=== PATIENT | male | born 1955 | race Hispanic/Latino ===

== ENCOUNTER 2020-11-11 13:55 | Emergency (ER) | payer SELFPAY ==
[2020-11-11] VITALS (7 sets, daily range): BP systolic 118–154; BP diastolic 77–95; PULSE 51–61; RESP 16–18; TEMP 35.5; O2SAT 95–99; BMI 28.1
--- NOTE | 2020-11-11 14:21 | ED.VIS.GEN ---
History of Present Illness Chief Complaint: Neuro S/Sx Informant: Patient Narrative: 65-year-old male with history of coronary artery bypass distantly currently only takes aspirin presenting with left-sided facial droop. He states last evening he did not have this. When he woke up at 5 in the morning was brushing his teeth he noticed it. Patient states that he has been at work today and feels otherwise fine other than his face being numb and having difficulty moving. Patient denies any injury. He does not have any arm or leg weakness or paresthesias in his extremities. Past Medical History - Allergies and Home Meds Allergies/Adverse Reactions: Allergies No Known Allergies Allergy (Verified 11/11/20 13:56) Primary Care Physician: NOT,DEFINED [NON-STAFF] - Past Medical History: - - CABG Surgical History: noncontributory Lives: Alone Smoking Status: Unknown if ever smoked Alcohol: None Drugs: None Review of Systems General: Denies: Chills, Fever, Sweats Eyes: Denies: Visual changes - bilaterally, Diplopia ENT: Denies: Rhinorrhea, Sore throat Cardiovascular: Denies: Chest pain, Palpitations Respiratory: Denies: Dyspnea, Cough, Dyspnea on exertion Gastrointestinal: Denies: Abdominal pain, Nausea, Vomiting, Diarrhea, Melena, Hematochezia Genitourinary: Denies: Dysuria, Hematuria, Frequency Musculoskeletal: Denies: Back pain, Extremity Pain Skin: Denies: Rash, Wounds Neurological: Reports: Weakness - Facial droop left side of face, Numbness - Left side of face. Denies: Headache Psych: Denies: Depression, Anxiety Endocrine: Denies: Polyuria, Polydipsia Physical Exam Vital Signs/Narrative: Vital Signs Temp Pulse Resp BP Pulse Ox 11/11/20 13:56 95.9 F L 61 18 154/83 H 97 Inital Vital Signs reviewed: Yes General: Well nourished, No Acute Distress Head: Normocephalic, Atraumatic Eyes: Perrl, EOMI ENT: Moist mucous membranes, No rhinorrhea Cardiovascular: Regular rate, Regular rhythm Respiratory: No distress, CTA bilaterally Skin: Normal color, No rash. Negative for: Cyanosis, Diaphoresis Neurological: Alert, Oriented x3, Parasthesia - Left-sided forehead is spared, Left side facial droop, - - NIH is 2 Psychological: Normal affect, Normal Mood Diagnostic/Tx/Re-eval Clinical Impression(s) from Imaging Studies Brain CT 11/11/20 14:49 IMPRESSION: 1. No CT evident acute infarct or acute intracranial disease. 2. ASPECT Score 10. 3. If deemed clinically warranted, further imaging evaluation with MRI may be more informative. Individualized dose optimization techniques were used for this CT. at 1632 Reported and signed by: Keanu Ortiz MD N.B. : The above information has been verbally conveyed by Keanu Ortiz MD to Lamonte Joshi DO, DO on 11/11/2020 16:31:33 (ET). Electronically Signed: Keanu Ortiz MD at 16:31 EST Tel , Service support , ADDENDUM: 11/11/20 1640 IMPRESSION: 1. No CT evident acute infarct or acute intracranial disease. 2. ASPECT Score 10. 3. If deemed clinically warranted, further imaging evaluation with MRI may be more informative. Individualized dose optimization techniques were used for this CT. at 1632 Reported and signed by: Keanu Ortiz MD N.B. : The above information has been verbally conveyed by Keanu Ortiz MD to Lamonte Joshi DO, DO on 11/11/2020 16:31:33 (ET). Electronically Signed: Keanu Ortiz MD at 16:31 EST Tel , Service support , Chest X-Ray 11/11/20 16:14 IMPRESSION: 1. No acute cardiopulmonary disease. at 1652 Reported and signed by: Keanu Ortiz MD Electronically Signed: Keanu Ortiz MD at 16:50 EST Tel , Service support , Laboratory Data 11/11/20 11/11/20 11/11/20 14:27 15:00 15:00 WBC 6.8 RBC 5.95 Hgb 17.1 H Hct 51.7 MCV 86.9 MCH 28.7 MCHC 33.1 RDW Std Deviation 42.0 RDW Coeff of Susanne 13.1 Plt Count 294 MPV 8.9 Immature Gran % (Auto) 0.100 Neut % (Auto) 61.8 Lymph % (Auto) 27.0 Wilkinson % (Auto) 9.3 Eos % (Auto) 1.2 Baso % (Auto) 0.6 Absolute Neuts (auto) 4.2 Absolute Lymphs (auto) 1.83 Nucleated RBC % 0 PT 13.0 INR 1.0 APTT 30.7 Sodium Potassium Chloride Carbon Dioxide Anion Gap BUN Creatinine Estim Creat Clear Calc Est GFR (MDRD) Af Amer Est GFR (MDRD) Non-Af BUN/Creatinine Ratio Glucose Calcium Troponin I POC Glucose 116 H 11/11/20 15:00 WBC RBC Hgb Hct MCV MCH MCHC RDW Std Deviation RDW Coeff of Susanne Plt Count MPV Immature Gran % (Auto) Neut % (Auto) Lymph % (Auto) Wilkinson % (Auto) Eos % (Auto) Baso % (Auto) Absolute Neuts (auto) Absolute Lymphs (auto) Nucleated RBC % PT INR APTT Sodium 139 Potassium 4.3 Chloride 106 Carbon Dioxide 30.0 Anion Gap 3 L BUN 16 Creatinine 0.90 Estim Creat Clear Calc 78.54 Est GFR (MDRD) Af Amer 109 Est GFR (MDRD) Non-Af 91 BUN/Creatinine Ratio 17.8 Glucose 100 Calcium 9.3 Troponin I < 0.015 POC Glucose - Rhythm Strip Rhythm Strip: Sinus Rhythm Rate: 83 - EKG Initial EKG Interpretation: No Acute Injury Pattern, Sinus Bradycardia - Medical Decision Making Patient presents with left-sided facial droop with sparing of the forehead. He has no other neurologic findings. Patient had CT of the brain which was negative for acute findings. Chest x-ray is interpreted by myself and the radiologist as negative for acute process. Patient's EKG is sinus rhythm without signs of ischemia as interpreted by myself. Patient's lab work is unremarkable. Patient counseled he will need to be admitted for further imaging and neurology consult, however at this time he states that he immediately has to leave in order to get back to [place] and help his family. I did camp counselor him at length the risks of doing so. He acknowledges understanding. He signed the appropriate paperwork. Patient counseled that he may return at any time. Impression: 1. Stroke ED Disposition - Plan for ED Patient: Disposition: Home or Assisted Living Instructions: Symptoms of Stroke Referrals: NOT,DEFINED [NON-STAFF] -
[2020-11-11 14:30] LABS: Bedside Glucose 116 mg/dL (70-110)
--- NOTE | 2020-11-11 14:49 | CT_ITS ---
HISTORY: Left facial droop today, hypertension. COMPARISON: None. TECHNIQUE: Helical CT axial images are obtained from the base of skull through the vertex without IV contrast. Multiplanar reconstruction. A radiation dose optimization technique was used for this scan. # of images incl. paperwork: 253 FINDINGS: BRAIN: No parenchymal hemorrhage, infarct, intra-axial mass, mass effect, or midline shift. No abnormal extra-axial fluid collections. VENTRICLES: Ventricles are normal in size and configuration. No hydrocephalus. CALVARIUM: Bone windows show no skull fracture or calvarial lesions. PARANASAL SINUSES AND MASTOIDS: Old left lamina papyracea fracture. Visualized paranasal sinuses are clear. Mastoid air cells are clear. ASPECTS Score for Acute Strokes: 10 CT/STROKE Brain/Head without Cont IMPRESSION: 1. No CT evident acute infarct or acute intracranial disease. 2. ASPECT Score 10. 3. If deemed clinically warranted, further imaging evaluation with MRI may be more informative. Individualized dose optimization techniques were used for this CT. at 1632 Reported and signed by: Keanu Ortiz MD N.B. : The above information has been verbally conveyed by Keanu Ortiz MD to Lamonte Joshi DO, , on 11/11/2020 16:31:33 (ET). Electronically Signed: Keanu Ortiz MD at 16:31 EST Tel , Service support ,
--- NOTE | 2020-11-11 15:21 | EKG12_ITS ---
Test Reason : Blood Pressure : / mmHG Vent. Rate : 053 BPM Atrial Rate : 053 BPM P-R Int : 178 ms QRS Dur : 090 ms QT Int : 434 ms P-R-T Axes : 025 -11 038 degrees QTc Int : 407 ms Sinus bradycardia Minimal voltage criteria for LVH, may be normal variant Borderline ECG Confirmed by MAGDY SLOAN, YECENIA ([id number]), metropolitan editor FLACO LUND ([id number]) on 11/15/2020 10:50:13 AM Referred By: KATINA Confirmed By:DAVID CURRAN MD
[2020-11-11 15:44] LABS: Partial Thromboplast Time 30.7 Seconds (24.1-36.2)
[2020-11-11 15:46] LABS: Absolute Lymphocyte Count 1.83 X10^3/uL (0.83-4.51); Absolute Neutrophil Count 4.2 X10^3/uL (2.0-7.7); Basophil# 0.04 X10^3/uL; Basophil% 0.6 % (0-1); Eosinophil# 0.08 X10^3/uL; Eosinophils% 1.2 % (0-5); Hematocrit 51.7 % (40-54); Hemoglobin 17.1 g/dL (13.0-16.5); Lymphocyte # 1.83 X10^3/ul (4.0); Mean Corp Hgb Conc 33.1 g/dL (32-36); Mean Corpuscular Hgb 28.7 pg (27.0-32.0); Mean Corpuscular Volume 86.9 fL (80-94); Mean Platelet Vol. 8.9 fl (6.2-12.0); Monocyte# 0.63 X10^3/uL; Monocyte% 9.3 % (0-10); NRBC Flagged by Analyzer 0 % (0-5); Neutrophil % 61.8 % (47-70); Platelet Count 294 K/mm3 (150-450); RBC Distribution Width CV 13.1 % (11.6-14.6); Red Blood Count 5.95 M/mm3 (4.6-6.2); White Blood Count 6.8 K/mm3 (4.4-11.0)
[2020-11-11 15:48] LABS: Anion Gap 3 (5-15); BUN 16 mg/dL (7-18); BUN/Creat Ratio 17.8 RATIO (10-20); Calcium,Total 9.3 mg/dL (8.5-10.1); Chloride 106 mmol/L (98-107); EST Glomerular Filtration Rate 91 mL/min (>60); Est Glom Filt Rate - Afr Amer 109 mL/min (>60); Estimated Creatinine Clearance 78.54 ml/min; Glucose 100 mg/dL (74-106); Potassium 4.3 mmol/L (3.5-5.1); Sodium Level 139 mmol/L (136-145)
--- NOTE | 2020-11-11 16:14 | RAD_ITS ---
HISTORY: woke up with left facial droop. no other symptoms XR Chest 1 View TECHNIQUE: Single frontal view of chest. # of images incl. paperwork: 1 COMPARISON: None. FINDINGS: LINES: None. CARDIOVASCULAR STRUCTURES: Normal heart size. Poststernotomy. Pulmonary vasculature appears normal. LUNGS: The lungs are clear. PLEURA: No pleural effusions or pneumothorax. BONES: No acute osseous abnormality of the thorax. RAD/Chest 1 View IMPRESSION: 1. No acute cardiopulmonary disease. at 1652 Reported and signed by: Keanu Ortiz MD Electronically Signed: Keanu Ortiz MD at 16:50 EST Tel , Service support ,
== END 2020-11-11 17:31 | disposition left against medical advice (07) ==
PROVIDERS: Emergency Provider Student in an Organized Health Care Education/Training Program
DX: I63.9 Cerebral infarction, unspecified (principal); Z95.1 Presence of aortocoronary bypass graft; Z79.82 Long term (current) use of aspirin
CPT/HCPCS: 70450; 71045; 80048; 82962; 84484; 85025; 85610; 85730; 93005; 99285; A4216

== ENCOUNTER 2020-11-11 18:50 | Observation (INO) | payer SELFPAY ==
[2020-11-11 14:30] VITALS: BMI 28.1
[2020-11-11 18:52] VITALS: BP 150/98; PULSE 57; RESP 16; TEMP 36.7; O2SAT 98; BMI 29.1
[2020-11-11 19:34] VITALS: BMI 29.1
[2020-11-11 19:42] VITALS: BMI 29.2
--- NOTE | 2020-11-11 19:42 | HP.PCM_ITS ---
Problem List (1) CVA (cerebral vascular accident) Status: Acute Qualifiers: CVA mechanism: unspecified Qualified Code(s): I63.9 - Cerebral infarction, unspecified (2) Hypertension Status: Chronic Qualifiers: Hypertension type: essential hypertension Qualified Code(s): I10 - Essential (primary) hypertension (3) CAD (coronary artery disease) Status: Chronic Qualifiers: Coronary Disease-Associated Artery/Lesion type: unspecified vessel or lesion type [place] vs. transplanted heart: unspecified whether koi or transplanted heart Associated angina: angina presence unspecified Qualified Code(s): I25.10 - Atherosclerotic heart disease of [place] coronary artery without angina pectoris (4) Overweight (BMI 25.0-29.9) Status: Chronic (5) Former tobacco use Status: Chronic (6) Hyperlipidemia Status: Chronic Qualifiers: Hyperlipidemia type: unspecified Qualified Code(s): E78.5 - Hyperlipidemia, unspecified History of Present Illness Date of Admission: 11/11/20 Chief Complaint: L sided facial droop, paresthesias The patient is a 65 y/o M w/ PMHx: HTN, CAD s/p CABG, Former Tobacco use who presented initially to the [facility] ED on 11/11/20 at 13:56 with history of waking earlier in the day at~ 5 am with a left facial droop more so noted when he was brushing his teeth prior to work with i at that time includednability eat lunch properly at work with additionally noted parethesias to the L side of the face. Work-up in the ED included T 95.9 temporally, heart rate ranging 53-61, BP 154/83 initially, respiratory rate 18, 97% room air, CBC unremarkable, coags unremarkable, BMP unremarkable, troponin less than 0.015, CT of the brain with no acute intracranial findings, chest x-ray with no acute cardiopulmonary findings, EKG with sinus bradycardia with no acute evidence of ischemia. Following evaluation with recommendation for patient admission with noted left- sided facial droop with sparing of the forehead patient declined and at that time noted that he was leaving in order to get back to [place] to help his family now returning and agreeable and amenable to stroke evaluation. Current evaluation in the ED included T 98.1, heart rate 57, BP 150/98, respiratory rate 16, 98% on room air, current NIH stroke scale 2 for partial paralysis of the left side of the face. Past Medical History Past Medical History (Chronic Problems): Chronic Problems Hypertension (Chronic) CAD (coronary artery disease) (Chronic) Overweight (BMI 25.0-29.9) (Chronic) Former tobacco use (Chronic) Hyperlipidemia (Chronic) Allergies No Known Allergies Allergy (Verified 11/11/20 13:56) Home Medications: Ambulatory Orders Medication Instructions Recorded Aspirin [Aspirin, Baby] 81 mg PO DAILY@0800 11/11/20 Atorvastatin Calcium 40 mg PO QHS 11/11/20 Carvedilol [Coreg] 3.125 mg PO BID 11/11/20 Lisinopril 5 mg PO DAILY 11/11/20 Nitroglycerin 0.4 mg SL Q5M PRN 11/11/20 Surgical History: - - CABG times 01/02/2016, left foot and ankle surgery. Psychiatric History: No pertinent psych hx Lives: With Family - Patient currently residing with his brother, his family otherwise is in [place] including his spouse. Smoking Status: Former smoker - Patient quit cigarette tobacco usage about 25 years prior to current presentation with prior to this to 3 cigarettes daily since he was a teenager. Tobacco Use: Non-smoker Alcohol: None Drugs: None - *Family History Maternal History Items: Cancer - Mother with history of liver cancer. Paternal History Items: High Cholesterol, Heart Disease, Hypertension Review of Systems Constitutional: Denies: Chills, Fever, Weight Change HEENT: Denies: Head Aches, Sinus Congestion, Sinus Drainage Cardiovascular: Denies: Chest Pain, Palpitations Respiratory: Denies: Cough, Shortness of breath at rest, Sputum production Gastrointestinal: Denies: Abdominal Pain, Nausea, Vomiting Genitourinary: Denies: Dysuria Musculoskeletal: Reports: Foot Pain, Joint Pain. Denies: Joint Tenderness Skin: Denies: Rash, Wounds Neurological: Reports: Confusion, Focal weakness. Denies: Numbness, Tingling Psychiatric: Denies: Anxiety, Depression, Homicidal Ideations, Suicidal Ideations Hematologic/ Lymphatic: Denies: Easy Bruising, Easy Bleeding VTE Information - Inpt Only VTE Present on Admission: No VTE Mechan Device Prophylaxis: SCD's VTE Pharm Prophylaxis ordered?: Yes Patient Problems: Active and Suspected Problems CVA (cerebral vascular accident) (Acute) Subjective: Patient seated upright in the ED bed, fatigued otherwise no acute distress, notes he had been confused when he left. Objective: Physical Examination: General: awake, alert, oriented x [address], person, recent events and remains cooperative, seated upright in the ED bed in no apparent distress. Skin: normal color, turgor, no icterus, cyanosis. HEENT: AT/NC, EOMI, PERRLA, mildly dry MM, ongoing left-sided facial droop with some sparing forehead, no carotid bruits or JVD noted. Lungs: CTA bilaterally, moderate effort, mild decrease BL bases, no rales, ronchi or wheezing. Heart: Mildly bradycardic with regular rhythm; no gallop, rub audible. Abdomen: soft, NTTP, ND, normal BS, no HSM. Extremities: no cyanosis, clubbing, or edema. Neurological: patient awake, alert, oriented as noted; cognitive function appears currently intact; pupils equally reactive to light and accomodation; cranial nerves II-XII grossly normal except noted mild left-sided facial droop with forehead sparing, moving all 4 extremities, no focal deficits, strength preserved. Psychiatric: affect appears fatigued otherwise normal, no acute evidence of depressive or anxiety feelings. - Physical Exam Vitals/I&O's: Vital Signs Temp Pulse Resp BP Pulse Ox 98.1 F 57 L 16 150/98 H 98 11/11/20 18:52 11/11/20 18:52 11/11/20 18:52 11/11/20 18:52 11/11/20 18:52 Oxygen Delivery Method Room Air Weight: 175 lb 4.28 oz Body Mass Index (BMI) 29.1 Finger Stick Blood Glucose 116 Assessment/Plan All Active Problems CVA (cerebral vascular accident) (Acute) The patient is a 65 y/o M w/ PMHx: HTN, CAD s/p CABG, Former Tobacco use who presented initially to the [facility] ED on 11/11/20 at 13:56 with history of waking earlier in the day at~ 5 am with a left facial droop more so noted when he was brushing his teeth prior to work with i at that time includednability eat lunch properly at work with additionally noted parethesias to the L side of the face. 1. Left-sided ongoing facial droop and paresthesias concerning for CVA: Will admit to the PCU, will obtain MRI Brain, MRA Head and Neck, ECHO, PT/OT/Speech/Nutrition evaluation per protocol. Will consult Neurology for evaluation following completion of work-up. Will allow permissive HTN, maintain on asa, add plavix, add high-dose statin w/ AM FLP, fall precautions. Mag, TSH, HgbA1c pending. 2. Hypertension: Continue permissive hypertension, likely will need to increase patient lisinopril and continue low-dose Coreg once completed as blood pressure above goal currently, as needed agents in interim. 3. CAD: Status post prior CABG, will continue on aspirin, continue beta-kyle therapy and likely increase lisinopril regimen once permissive hypertension completed, continue statin but change to high-dose given presentation. 4. Overweight: Encouraged lifestyle and diet changes. 5. Former tobacco use: Encourage continued tobacco cessation. 6. Hyperlipidemia: Continue home statin regimen. AM FLP. 7. DVT prophylaxis: SCDs, Lovenox. Inpatient E&M: 47312 Init Hosp L3
--- NOTE | 2020-11-11 19:43 | ED.VISSUMM ---
- ER Visit Summary Date of Service: 11/11/20 Chief Complaint: Left facial droop History of Present Illness: The patient is a 65 M presenting with left facial droop. Patient states he woke up this morning and had a left facial droop. He was seen in the ED earlier today. He had a work-up and admission was recommended. At that time he left AGAINST MEDICAL ADVICE. He states he did not understand. He tried to go to work and they told him he needed to come back to the hospital. He denies other complaints. Physical Examination: Vitals are stable. Patient is afebrile. Alert no acute distress. HEENT exam is unremarkable. Neck is supple. Lungs are clear and equal bilaterally. Heart is regular rate and rhythm. Abdomen is soft nontender nondistended. Extremities are unremarkable. Skin is warm and dry. Left facial droop which spares the forehead Remainder of exam is unremarkable. Emergency Department Course and Treatment: Previous records were reviewed. Discussed with hospitalist for admission. Disposition: Admission Impression: Left facial droop This note was generated with [employer] dictation software. It may contain incorrect words, spelling, and punctuation that were not noted in review of the chart prior to signing ED Disposition - Plan for ED Patient: Referrals: Care Physician,No Primary [Primary Care Provider] -
[2020-11-11 19:57] VITALS: BP 144/91; PULSE 55; RESP 18; TEMP 36.1; O2SAT 99
--- NOTE | 2020-11-11 20:16 | ECHOD_ITS ---
Reason For Study: TIA/CVA Procedure This was a 2D Doppler, Color Flow transthoracic echocardiogram. Exam performed portable in patient room. Left Ventricle Normal LV size. The estimated ejection fraction is 60 %. No evidence for diastolic dysfunction. No regional wall motion abnormalities noted. Right Ventricle Normal RV size. Normal systolic function. Atria Normal left atrium. Normal right atrium. No doppler evidence for ASD. Bubble contrast study negative for right to left interatrial shunt. Mitral Valve There is no mitral valve stenosis. Trivial mitral valve insufficiency. Tricuspid Valve There is no tricuspid stenosis. Trivial tricuspid valve insufficiency. Pulmonary artery systolic pressure is 25 mmHg. Aortic Valve Trisinus/trileaflet aortic valve. Moderate focal aortic valve calcification. There is no aortic stenosis. No aortic valve insufficiency. Pulmonic Valve There is no pulmonic valvular stenosis. Trivial pulmonic valve insufficiency. Great Vessels Normal aortic root. Pericardium/Pleural No pericardial effusion. Medication Performed a rapid injection of agitated mix of 9 cc saline and 1cc air to assess for atrial septal defect. MMode/2D Measurements & Calculations LVIDd: 4.3 cm IVSd: 1.2 cm Ao root diam: 3.7 cm LVIDs: 3.1 cm LVPWd: 1.2 cm RVDd: 3.6 cm FS: 28.6 % LAV(MOD-bp): 41.9 ml LVAd ap4: 28.1 cm2 SV(MOD-sp4): 54.4 ml LAV(MOD-bp) Indexed: 22.4 ml/m2 EDV(MOD-sp4): 84.3 ml LAV(MOD-sp2): 42.8 ml EDV(sp4-el): 88.5 ml LAV(MOD-sp4): 40.9 ml LVAs ap4: 15.5 cm2 ESV(MOD-sp4): 29.9 ml ESV(sp4-el): 31.3 ml EF(MOD-sp4): 64.6 % EF(sp4-el): 64.6 % SV(sp4-el): 57.2 ml LA A4 area: 15.4 cm2 LA dimension(2D): 4.2 cm RA A4 area: 9.9 cm2 Time Measurements MV dec time: 0.24 sec Doppler Measurements & Calculations MV E max anatoly: 70.7 cm/sec Lat Peak E' Anatoly: 11.2 cm/sec Med Peak E' Anatoly: 4.9 cm/sec MV A max anatoly: 64.8 cm/sec E/E' lat: 6.3 E/E' med: 14.4 MV E/A: 1.1 MV V2 max: 75.2 cm/sec Ao V2 max: 125.6 cm/sec LV V1 max: 85.0 cm/sec MV max P.3 mmHg Ao max P.3 mmHg LV V1 max P.9 mmHg MV V2 mean: 36.7 cm/sec MV mean P.69 mmHg MV V2 VTI: 27.0 cm PA V2 max: 111.5 cm/sec PI end-d anatoly: 106.1 cm/sec TR max anatoly: 235.6 cm/sec TR max P.2 mmHg MV P1/2t-pr_phl: 128.2 msec Interpretation Summary The estimated ejection fraction is 60 %. No evidence for diastolic dysfunction. Trivial mitral valve insufficiency. Ordering Physician: Rabia Rivera Performed By: Ria Jones, MARY, RVT
[2020-11-11 20:24] VITALS: BMI 29.1
[2020-11-11 20:28] VITALS: BP 148/84; PULSE 57; RESP 16; TEMP 36.6; O2SAT 97
[2020-11-11 20:36] VITALS: PULSE 58
[2020-11-11] MEDS: Famotidine 20 MG Tablet PO (21:32)
[2020-11-11] MEDS: Aspirin 81 MG TAB.CHEW PO (21:32)
[2020-11-11] MEDS: Atorvastatin Calcium 80 MG Tablet PO (21:32)
[2020-11-11] MEDS: Acetaminophen 325 MG Tablet 650 MG PO (21:32)
[2020-11-11 21:47] VITALS: BMI 29.1
[2020-11-11 22:00] VITALS: O2SAT 98
--- NOTE | 2020-11-11 22:37 | PCS.PANDOC ---
PANDEMIC DOCUMENTATION INITIATED: Date: 11/11/2020 Time: 2014
[2020-11-12] VITALS (9 sets, daily range): BP systolic 126–158; BP diastolic 69–83; PULSE 56–71; RESP 16–18; TEMP 36.5–36.9; O2SAT 95–99
[2020-11-12 05:59] LABS: Cholesterol 134 mg/dL (200); High Density Lipoprotein 45 mg/dL; T4 Free Direct 1.18 ng/dL (0.76-1.46); Thyroid Stim Hormone (TSH) 0.83 uIU/mL (0.358-3.74); Triglycerides 67 mg/dL; Very Low Density Lipoprotein 13 mg/dL (5-40)
[2020-11-12 08:29] LABS: Hemoglobin A1c 5.5 % (3.8-5.6)
[2020-11-12] MEDS: Enoxaparin 40 MG/0.4 ML Syringe SC (08:54)
[2020-11-12] MEDS: Clopidogrel Bisulfate 75 MG Tablet PO (08:54)
[2020-11-12] MEDS: Acetaminophen 325 MG Tablet 650 MG PO (08:54)
[2020-11-12] MEDS: Famotidine 20 MG Tablet PO (08:54)
--- NOTE | 2020-11-12 10:45 | MRI_ITS ---
STUDY: MRA OF THE HEAD WITHOUT CONTRAST REASON FOR EXAM: Male, 65 years old patient with LEFT facial droop. TECHNIQUE: 3-D [id number] (TOF) imaging was performed with MIPs. The study was performed unenhanced. COMPARISON: None. FINDINGS: Normal bilateral petrous carotid arteries. Normal right cavernous carotid artery with a normal supraclinoid bifurcation. Normal left cavernous carotid artery with a normal supraclinoid bifurcation. 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 Normal left A1 segments of the anterior cerebral artery. Normal intact anterior communicating artery (ACOM). Normal bilateral A2 segments of the anterior cerebral arteries. Normal right M1 and M2 segments of the middle cerebral arteries, with a normal M1 bifurcation. Normal left M1 and M2 segments of the middle cerebral arteries, with a normal M1 bifurcation. Normal right posterior communicating artery (PCOM). There is non-visualization of the left posterior communicating artery (PCOM). Normal bilateral vertebral arteries. Normal basilar artery with a normal basilar bifurcation. The visualized bilateral superior cerebellar (SCA) arteries are normal. Normal bilateral P1, P2 and visualized P3 segments of the posterior cerebral arteries. There is no demonstrated aneurysm of the [place] of [place]. There is no major vessel occlusion or hemodynamically significant stenosis. There is no demonstrated abnormality of the visualized brain. MRI/MRA Head ONLY without Contrast IMPRESSION: No MRA evidence for hemodynamically significant stenosis, thrombosis or aneurysm. Electronically Signed: Edyta Gaytan MD at 16:07 EST , Service support ,
--- NOTE | 2020-11-12 10:45 | MRI_ITS ---
STUDY: MRI BRAIN WITHOUT CONTRAST REASON FOR EXAM: Male, 65 years old patient with LEFT-sided facial droop. TECHNIQUE: Standardized multiplanar fat and water weighted pulse sequences were obtained. COMPARISON: CT of the head dated 11/11/2020. FINDINGS: Normal size of the ventricles and extra-axial spaces for the patient''s age. There are multiple small focal areas of abnormal T2 hyperintensity located primarily within the white matter of the frontal lobes in the subcortical distribution. This suggests the possibility of a vasculitis or migraine headaches. The white matter otherwise has a normal appearance. There is no evidence for recent intracranial ischemia or other cause of cytotoxic edema on diffusion weighted imaging (DWI). Normal T2* images of the brain without demonstrated susceptibility artifact. There is no demonstrated hemosiderin stain. Normal bilateral basal ganglia. Normal thalami. There is no extra-axial fluid accumulation. Normal flow voids within the major intracranial circulation suggesting patency by spin echo criteria. Normal sella turcica, pituitary gland, infundibular stalk, optic chiasm and hypothalamus. Normal tectal plate and pineal gland. Normal midbrain, andrew and medulla. Normal cerebellum. Normal basal cisterns. Normal bilateral temporal bones. Normal bilateral internal auditory canals. No demonstrated orbital abnormality, within the constraints of a routine brain study. Normal visualized paranasal sinuses. Normal calvarium and skull base. Normal visualized soft tissue structures. There are degenerative changes of the anterior atlantoaxial articulation. MRI/Brain without Contrast IMPRESSION: 1. Mild sequela of microvascular disease with multifocal areas of abnormal T2 hyperintensity primarily in the frontal lobe white matter. 2. No MR evidence for acute infarct. Electronically Signed: Edyta Gaytan MD at 16:02 EST , Service support ,
--- NOTE | 2020-11-12 10:45 | MRI_ITS ---
STUDY: MRA NECK WITHOUT CONTRAST REASON FOR EXAM: Male, 65 years old patient with left-sided facial droop. TECHNIQUE: Source images were obtained, MIPs were performed. The study was performed unenhanced. The study is technically limited due to patient motion. COMPARISON: None. FINDINGS: RIGHT CAROTID ARTERIES: Normal right common carotid artery (CCA). There is moderate atherosclerotic plaque formation with moderate narrowing of the carotid bulb. There is moderate atherosclerotic plaque formation of the origin of the right internal carotid artery with an estimated stenosis of 50-69% stenosis. Normal visualized cervical portion of the right internal carotid artery. Normal origin of the right external carotid artery (ECA). LEFT CAROTID ARTERIES: Normal left common carotid artery (CCA). There is mild atherosclerotic plaque formation with minimal narrowing of the left carotid bulb. Normal origin of the left internal carotid (ICA) artery without a hemodynamically significant stenosis. Normal visualized cervical portion of the left internal carotid artery. Normal origin of the left external carotid artery (ECA). VERTEBRAL ARTERIES: Normal antegrade flow within the bilateral vertebral artery without a hemodynamically significant stenosis. MRI/MRA Neck without Contrast IMPRESSION: 1. Technically limited study due to patient motion. 2. Hemodynamically significant stenosis of the origin of the right internal carotid artery. Electronically Signed: Edyta Gaytan MD at 15:48 EST , Service support ,
--- NOTE | 2020-11-12 11:55 | DCINST_ITS ---
- Discharge Diagnoses Current Active Problems: Current Active and Chronic Problems Quezada's palsy Hypertension (Chronic) CAD (coronary artery disease) (Chronic) Former tobacco use (Chronic) Hyperlipidemia (Chronic) Right carotid stenosis You will use the following diet at home:: Cardiac Discharge Activity: Return to Normal Activity Call your doctor if you observe: Shortness of breath, Dizziness, Fainting spells, Chest pain Additional Instructions: Keep left eye moist with eyedrops 4 times daily and as needed. Tape left eye shut at night. You are neck imaging showed estimated stenosis (narrowing) of 50 to 69% on the right internal carotid artery. You will need follow-up with vascular surgery upon returning to [place]. Allergies/Adverse Reactions: Allergies No Known Allergies Allergy (Verified 11/11/20 13:56) Medications to take at Discharge Aspirin [Aspirin, Baby] 81 mg PO DAILY@199911/11/20 Atorvastatin Calcium 40 mg PO QHS 11/11/20 Carvedilol [Coreg] 3.125 mg PO BID 11/11/20 Lisinopril 5 mg PO DAILY 11/11/20 Nitroglycerin 0.4 mg SL Q5M PRN 11/11/20 Carboxymethylcellulose Sodium [Artificial Tears] 1 - 2 drp LEFT EYE 4X/DAY #1 bottle 11/12/20 Prednisone 60 mg PO DAILY #45 tab 11/12/20 Valacyclovir HCl [Valacyclovir] 1,000 mg PO TID #21 tab 11/12/20 The following prescriptions were given: Carboxymethylcellulose Sodium [Artificial Tears] 1 - 2 drp LEFT EYE 4X/DAY #1 bottle Transmission Status: Received by [id number] Prednisone 60 mg PO DAILY #45 tab Transmission Status: Received by [id number] Valacyclovir HCl [Valacyclovir] 1,000 mg PO TID #21 tab Transmission Status: Received by [facility] Primary Care Physician: Care Physician,No Primary [Primary Care Provider] - Please follow up with your Primary Care Physician in: 3-5 Days Test Results: Test results from this visit will be discussed in further detail at your follow- up appointment, if applicable. Please Follow Up With: Vascular surgery When: Follow-up upon return to [place] Proposed Discharge Date: 11/12/20
--- NOTE | 2020-11-12 12:06 | CASEMGMT ---
SW did not talk with patient about self pay status as he is from [place] and is only working in [place]. Local resources will not help him. Jacqueline MONTANO MSW
--- NOTE | 2020-11-12 12:07 | CASEMGMT ---
SW did not complete a PHQ 9 as per physician patient did not have a Stroke or TIA. Jacqueline MONTANO MSW
--- NOTE | 2020-11-12 16:43 | DS.PCM_ITS ---
<Arianna Vasquez TIMBER SETTER - Last Filed: 11/12/20 16:56> Discharge Date and Diagnosis - Problem List Patient Problems: Active and Suspected Problems CVA (cerebral vascular accident) (Acute) Date of Admission: 11/11/20 Date of Discharge: 11/12/20 - Primary Discharge Diagnosis Acute Problems: Active Problems 1. Quezada's palsy, CVA ruled out 2. Moderate right carotid artery stenosis 3. CAD with history of CABG 4. Hypertension 5. HLD - Secondary Discharge Diagnosis Chronic Problems: Chronic Problems Hypertension (Chronic) CAD (coronary artery disease) (Chronic) Overweight (BMI 25.0-29.9) (Chronic) Former tobacco use (Chronic) Hyperlipidemia (Chronic) Hospital Course and Treatment Imaging Results: Diagnostic Data Brain MRI 11/12/20 10:45 IMPRESSION: 1. Mild sequela of microvascular disease with multifocal areas of abnormal T2 hyperintensity primarily in the frontal lobe white matter. 2. No MR evidence for acute infarct. Electronically Signed: Edyta Gaytan MD at 16:02 EST , Service support , Head MRA 11/12/20 10:45 IMPRESSION: No MRA evidence for hemodynamically significant stenosis, thrombosis or aneurysm. Electronically Signed: Edyta Gaytan MD at 16:07 EST , Service support , Neck MRA 11/12/20 10:45 IMPRESSION: 1. Technically limited study due to patient motion. 2. Hemodynamically significant stenosis of the origin of the right internal carotid artery. Electronically Signed: Edyta Gaytan MD at 15:48 EST , Service support , Operations: None Procedures: 2-D Echocardiogram Summary of Care Provided: The patient is a 65 year old M admitted 11/11/2020 due to left-sided facial droop. 1. Quezada's palsy, CVA ruled out-MRI without acute infarct. Patient does not have other neurologic or focal deficits with the exception of left facial paralysis. He is unable to completely close left eye. Echocardiogram demonstrates an EF of 60%. Instructed on left eye care including keeping eye lubricated and taping left eye shut at night. Prednisone burst at discharge. Valacyclovir 1000 mg 3 times daily for 1 week. Follow-up with PCP upon return to [place]. 2. Moderate right carotid artery stenosis-continue aspirin, statin. Follow-up with vascular surgery upon return to patient's primary home in [place]. 3. CAD with history of CABG-continue aspirin, statin, carvedilol, lisinopril. 4. Hypertension-stable, continue home regimen. 5. HLD-continue statin. Patient seen and examined prior to discharge. Physical assessment as noted below. Patient is stable for discharge with follow up recommendations as noted above. This patient was seen by DELIA Escobar under the supervision of Dr. Vasquez. Patient Problems: Active and Suspected Problems CVA (cerebral vascular accident) (Acute) - Physical Exam Vitals/I&O's: Vital Signs Temp Pulse Resp BP Pulse Ox 97.7 F L 61 18 152/79 H 96 11/12/20 12:23 11/12/20 14:59 11/12/20 12:23 11/12/20 12:23 11/12/20 12:23 Oxygen Delivery Method Room Air Weight: 175 lb 0.752 oz Body Mass Index (BMI) 29.1 Finger Stick Blood Glucose 116 Intake and Output for Last 24 Hours 11/10/20 11/11/20 11/12/20 23:59 23:59 23:59 Intake Total 150 / 150 510 / 510 Balance 150 / 150 510 / 510 General: Alert, Oriented x3, Cooperative HEENT: Atraumatic, PERRLA, EOMI, Normocephalic Neck: Supple, No JVD, Negative Carotid Bruits Lungs: Clear to auscultation, Normal air movement Cardiovascular: Regular rate, No murmurs Abdomen: Bowel Sounds Present, Soft, Non Tender, Non-Distended Extremities: No clubbing, No cyanosis, No edema, Capillary Refill Less than 3 Seconds Skin: No rashes, No breakdown Musculoskeletal: No Tenderness to Palpation of Joints or Extremities Neurological: Cranial nerves II-XII grossly intact, Neuro grossly intact, - - Left facial paralysis Psych/Mental Status: Normal Affect, Appropriate Laboratory Results 11/12/20 05:14: Triglycerides 67, Cholesterol 134, LDL Cholesterol 76, VLDL Cholesterol 13, HDL Cholesterol 45, TSH 0.83, Free T4 1.18 11/12/20 05:14: Hemoglobin A1c 5.5 Current Medications Acetaminophen (Acetaminophen 325 Mg Tablet) 650 mg PO Q6H PRN PRN PRN Reason: Pain Score 1-10/Temp > 100.7 F Last Admin: 11/12/20 08:54 Dose: 650 mg Documented by: Al Hydroxide/Mg Hydroxide (Mag Hydrox/Al Hydrox/Simeth 30 Ml Udc) 30 ml PO Q6H PRN PRN PRN Reason: Gastric Burning Aspirin (Aspirin 81 Mg Tab.Chew) 81 mg PO DAILY@1999 [facility] Last Admin: 11/11/20 21:32 Dose: 81 mg Documented by: Atorvastatin Calcium (Atorvastatin Calcium 80 Mg Tablet) 80 mg PO QHS [facility] Last Admin: 11/11/20 21:32 Dose: 80 mg Documented by: Clopidogrel Bisulfate (Clopidogrel Bisulfate 75 Mg Tablet) 75 mg PO DAILY [facility] Last Admin: 11/12/20 08:54 Dose: 75 mg Documented by: Enoxaparin Sodium (Enoxaparin 40 Mg/0.4 Ml Syringe) 40 mg SC DAILY [facility] Last Admin: 11/12/20 08:54 Dose: 40 mg Documented by: Famotidine (Famotidine 20 Mg Tablet) 20 mg PO BID [facility] Last Admin: 11/12/20 08:54 Dose: 20 mg Documented by: Guaifenesin (Guaifenesin 10 Ml Udc (200mg/10ml)) 20 ml PO Q4H PRN PRN PRN Reason: COUGH Hydralazine HCl (Hydralazine 20 Mg/Ml Vial) 5 mg IV Q30M PRN PRN Reason: to maintain BP goals Labetalol HCl (Labetalol (Prefilled) 20 Mg/4 Ml) 10 - 20 mg IV Q10M PRN PRN PRN Reason: to Maintain BP Goals Magnesium Hydroxide (Magnesium Hydroxide 30 Ml Udc) 30 ml PO DAILY PRN PRN PRN Reason: Constipation Melatonin (Melatonin 3 Mg Tablet) 3 mg PO QHS PRN PRN PRN Reason: INSOMNIA Nitroglycerin (Nitroglycerin (Inpatient Use) 0.4 Mg Tab.Subl) 0.4 mg SUBLINGUAL Q5M PRN PRN Reason: CARDIAC/CHEST PAIN Ondansetron HCl (Ondansetron 4 Mg/2 Ml Vial) 4 mg IV Q8H PRN PRN PRN Reason: NAUSEA/VOMITING Prochlorperazine Edisylate (Prochlorperazine 10 Mg/2 Ml Vial) 5 mg IV Q4H PRN PRN PRN Reason: Breakthrough Nausea/Vomiting Psyllium Hydrophilic Mucilloid (Psyllium 1 Packet) 1 packet PO DAILY PRN PRN PRN Reason: Constipation Senna/Docusate Sodium (Senna/Docusate Sodium 1 Tablet) 2 tablet PO BID PRN PRN PRN Reason: Constipation Sodium Chloride (0.9% Saline Lock 10 Ml Syringe) 10 - 40 ml IV UD PRN PRN Reason: SALINE FLUSH Throat Lozenges (Benzocaine/Menthol 1 Lozenge) 1 lozenge MUCOUS MEM Q2H PRN PRN PRN Reason: SORE THROAT Discharge Diet: Low fat/ Low Cholesterol Discharge Activity: Return to Normal Activity Call your doctor if you observe: Shortness of breath, Dizziness, Fainting spells, Chest pain Home Medications: Medications to take at Discharge Aspirin [Aspirin, Baby] 81 mg PO DAILY@199911/11/20 Atorvastatin Calcium 40 mg PO QHS 11/11/20 Carvedilol [Coreg] 3.125 mg PO BID 11/11/20 Lisinopril 5 mg PO DAILY 11/11/20 Nitroglycerin 0.4 mg SL Q5M PRN 11/11/20 Carboxymethylcellulose Sodium [Artificial Tears] 1 - 2 drp LEFT EYE 4X/DAY #1 bottle 11/12/20 Prednisone 60 mg PO DAILY #45 tab 11/12/20 Valacyclovir HCl [Valacyclovir] 1,000 mg PO TID #21 tab 11/12/20 Following Prescriptions Were Given to Patient: Carboxymethylcellulose Sodium [Artificial Tears] 1 - 2 drp LEFT EYE 4X/DAY #1 bottle Transmission Status: Received by [facility] Prednisone 60 mg PO DAILY #45 tab Transmission Status: Received by [facility] Valacyclovir HCl [Valacyclovir] 1,000 mg PO TID #21 tab Transmission Status: Received by [facility] Primary Care Physician: Care Physician,No Primary [Primary Care Provider] - Please follow up with your Primary Care Physician in: 3-5 Days Please Follow Up With: Vascular surgery When: Follow-up upon return to [place] Disposition: Home Minutes spent on discharge:: 35 Patient Condition:: Stable Medical Necessity - Tobacco Use Smoking Status: Former smoker Tobacco Use: Non-smoker Meaningful Use Info Meaningful Use Diagnoses (Choose all that apply): None applicable <Faustino Vasquez - Last Filed: 11/13/20 15:47> Discharge Date and Diagnosis - Primary Discharge Diagnosis Acute Problems: Active Problems CVA (cerebral vascular accident) (Acute) - Secondary Discharge Diagnosis Chronic Problems: Chronic Problems Hypertension (Chronic) CAD (coronary artery disease) (Chronic) Overweight (BMI 25.0-29.9) (Chronic) Former tobacco use (Chronic) Hyperlipidemia (Chronic) Hospital Course and Treatment Summary of Care Provided: This patient was seen in conjunction with TIMBER SETTERArianna. I have independently interviewed and examined the patient and reviewed pertinent history, examination findings, laboratory and plan of management. I have reviewed the note and agree with the documented findings with the few additional points. In brief, patient is 65-year-old [place] Afghan gentleman from [place] admitted with complete, lower neuron left-sided facial paralysis. Overall clinical assessment consistent with Quezada's palsy. Patient does not have rash suggestive of herpes zoster/shingles. Advised to put teardrop and taping left eye at night. Patient discharged on valacyclovir 1 g 3 times daily for 1 week along with prednisone burst therapy. Follow-up PCP in 1 week as patient might develop peripheral neuropathy/neuropathy pain and might need gabapentin. MRI brain showed no evidence of acute infarct. MRA neck shows hemodynamically segment stenosis of the origin of right ICA. Advised to follow-up with vascular surgeon. Her comorbidities include coronary artery status post CABG, hypertension and dyslipidemia: Stable. Discharge medication reconciliation done. Discharge follow-up instructions completed. Discharge process discussed with the patient and all questions were answered to patient's satisfaction. Total time spent, exact 35 minutes on discharge meds reconciliation, examination, coordination of care with nurses and ancillary staff, review of imaging and blood test and discussion with the patient on follow-up instructions I have discussed my assessment with Arianna CLAY and orders have been reviewed. [] Clinical Impression(s) from Imaging Studies Brain MRI 11/12/20 10:45 IMPRESSION: 1. Mild sequela of microvascular disease with multifocal areas of abnormal T2 hyperintensity primarily in the frontal lobe white matter. 2. No MR evidence for acute infarct. Head MRA 11/12/20 10:45 IMPRESSION: No MRA evidence for hemodynamically significant stenosis, thrombosis or aneurysm. Electronically Signed: Edyta Gaytan MD at 16:07 EST , Service support , Neck MRA 11/12/20 10:45 IMPRESSION: 1. Technically limited study due to patient motion. 2. Hemodynamically significant stenosis of the origin of the right internal carotid artery. Electronically Signed: Edyta Gaytan MD at 15:48 EST , Service support , Objective: Seen and examined. Heart rate and blood pressure controlled. Patient admitted with left-sided complete facial drop. No other symptoms of loss of vision, dysphagia, dysarthria, language deficit or focal weakness or sensory loss. Patient does not have rash. Physical exam General: Alert, Oriented x3, Cooperative HEENT: Atraumatic, PERRLA, EOMI, Normocephalic. Complete left-sided facial paralysis, upper and lower. No loss of vision. Oral: No Gingival or Mucosal Lesions/ Ulcerations Neck: Supple, No JVD, Negative Carotid Bruits Lungs: Air entry diminished in bilateral lung bases. No crepitation/rhonchi Cardiovascular: Regular rate, Regular Rhythm, Normal S1, Normal S2, No murmurs Abdomen: Bowel Sounds Present, Soft, Non Tender, Non-Distended : No renal angle tenderness. No suprapubic tenderness. Extremities: No edema, Capillary Refill Less than 3 Seconds Skin: No rashes, No breakdown Musculoskeletal: No Tenderness to Palpation of Joints or Extremities Neurological: Cranial nerves II-XII grossly intact except facial nerve, Deep Tendon Reflexes 2+/4 and Symmetrical, Neuro grossly intact Psych/Mental Status: Normal Affect, Appropriate. - Physical Exam Vitals/I&O's: Vital Signs Temp Pulse Resp BP Pulse Ox 97.8 F 58 L 18 158/83 H 96 11/12/20 16:20 11/12/20 16:20 11/12/20 16:20 11/12/20 16:20 11/12/20 16:20 Oxygen Delivery Method Room Air Weight: 175 lb 0.752 oz Body Mass Index (BMI) 29.1 Finger Stick Blood Glucose 116 Intake and Output for Last 24 Hours 11/11/20 11/12/20 11/13/20 23:59 23:59 23:59 Intake Total 150 / 150 510 / 510 Balance 150 / 150 510 / 510 Inpatient E&M: 53055 Disch Hosp
== END 2020-11-12 11:55 | disposition home or self-care (01) ==
LOC: ED 19:07 → PCU 20:06
PROVIDERS: Admitting Provider Family Medicine; Emergency Provider Emergency Medicine; Visit Provider Internal Medicine
DX: G51.0 Bell's palsy (principal); I10 Essential (primary) hypertension; I25.10 Atherosclerotic heart disease of native coronary artery without angina pectoris; Z79.899 Other long term (current) drug therapy; Z79.82 Long term (current) use of aspirin; E78.5 Hyperlipidemia, unspecified; Z87.891 Personal history of nicotine dependence; Z95.1 Presence of aortocoronary bypass graft; I65.21 Occlusion and stenosis of right carotid artery; R29.702 NIHSS score 2
CPT/HCPCS: 70450; 70544; 70547; 70551; 71045; 80048; 80061; 82962; 83036; 84439; 84443; 84484; 85025; 85610; 85730; 92507; 93005; 93306; 94762; 96372; 97162; 97165; 99218; 99251; 99284; A4216; G0378; G0463